=== PATIENT | female | born 1990 | race Caucasian/White ===

== ENCOUNTER 2018-05-22 00:46 | Emergency (ER) | payer OTHER ==
[~2018-05-22] VITALS: Ht 172.7 cm; Wt 61.2 kg
[2018-05-22 01:35] LABS: ABSOLUTE NEUTROPHILS 7.7 thou/uL (1.4-8.2); BASOPHILS 0.5 % (0.0-2.0); EOSINOPHILS 0.9 % (0.0-3.0); HEMATOCRIT 38.6 % (37.0-47.0); HEMOGLOBIN 12.9 gm/dL (12.0-15.0); LYMPHOCYTES 20.3 % (24.0-44.0); MCH 28.2 pg (26.0-34.0); MCHC 33.5 g/dL (28.0-37.0); MCV 84.3 fL (80.0-100.0); PLATELET COUNT 251 thou/uL (150-400); POLYS 73.3 % (36.0-66.0); RBC 4.58 mil/uL (4.20-5.00); RDW 13.6 % (10.5-14.5); WBC 10.5 thou/uL (4.0-11.0)
[2018-05-22 01:44] LABS: ANION GAP 16 mmol/L (7-16); BUN 6 mg/dL (7-18); CALCIUM 8.7 mg/dL (8.5-10.1); CHLORIDE 106 mmol/L (98-107); CO2 18 mmol/L (21-32); CREATININE 0.9 mg/dL (0.6-1.0); GLUCOSE 98 mg/dL (74-106); POTASSIUM 3.2 mmol/L (3.5-5.1); SODIUM 140 mmol/L (136-145)
[2018-05-22] MEDS ORDERED: ZOLOFT50 MG PO (01:48)
[2018-05-22] MEDS ORDERED: TOPAMAX50 MG PO (01:48)
[2018-05-22] MEDS ORDERED: TRAZODONE HCL100 MG PO (01:48)
[2018-05-22] MEDS ORDERED: LAMICTAL100 MG PO (01:49)
[2018-05-22] MEDS ORDERED: ATIVAN1 MG PO (01:49)
[2018-05-22 01:50] LABS: ALBUMIN 3.7 g/dL (3.4-5.0); LIPASE 284 U/L (73-393); SALICYLATE < 2.8 mg/dL (2.8-20.0); SGOT 20 U/L (15-37); SGPT 20 U/L (30-65); TOTAL BILIRUBIN 0.2 mg/dL (<0.1-1.0); TOTAL PROTEIN 6.8 g/dL (6.4-8.2)
[2018-05-22 02:07] LABS: URINE BILIRUBIN NEGATIVE (Negative); URINE BLOOD NEGATIVE (Negative); URINE CLARITY CLEAR; URINE COLOR YELLOW; URINE GLUCOSE-RANDOM* NEGATIVE (Negative); URINE KETONES NEGATIVE (Negative); URINE LEUKOCYTES-REFLEX NEGATIVE (Negative); URINE NITRITE-REFLEX NEGATIVE (Negative); URINE PROTEIN (DIPSTICK) NEGATIVE (Negative); URINE UROBILINOGEN 0.2 E.U./dl (0.2-1.0)
[2018-05-22] MEDS ORDERED: ANTIVERT25 MG PO (02:22)
[2018-05-22] MEDS ORDERED: ZOFRAN ODT8 MG PO (02:22)
[2018-05-22 02:26] LABS: AMP/METHAMP Negative (Negative); BARBITURATES Negative (Negative); BENZODIAZEPINES Negative (Negative); COCAINE Negative (Negative); METHADONE Negative (Negative); OPIATES Negative (Negative); PCP Negative (Negative)
== END 2018-05-22 02:54 | disposition home or self-care (01) ==
LOC: ER 00:46
PROVIDERS: Emergency Medicine
DX: F10.129 Alcohol abuse with intoxication, unspecified (principal); E87.6 Hypokalemia; R11.2 Nausea with vomiting, unspecified; R51 Headache; R19.7 Diarrhea, unspecified; Y90.0 Blood alcohol level of less than 20 mg/100 ml